=== PATIENT | male | born 1945 | race Caucasian/White ===

== ENCOUNTER 2019-01-12 05:57 | Day surgery (SDC) | payer BC ==
[2019-01-12] MEDS ORDERED: PROPOFOL 20 ML (07:35)
== END 2019-01-12 10:00 | disposition short-term general hospital (02) ==
LOC: GIL 05:57
DX: R10.13 Epigastric pain (principal); Z53.09 Procedure and treatment not carried out because of other contraindication; R00.1 Bradycardia, unspecified
CPT/HCPCS: 82962; 93005

== ENCOUNTER 2019-01-12 08:45 | Inpatient (IN) | payer BC ==
[2019-01-12 09:14] LABS: ADD MAN DIFF? NO
[2019-01-12 09:19] LABS: WHITE BLOOD COUNT 6.2 10^3/ul (4.8-10.8)
[2019-01-12 09:19] LABS: BASOPHILS % 0.3 % (0.0-2.0); EOSINOPHILS # 0.1 10^3/ul (0.0-0.5); EOSINOPHILS % 2.3 % (0.0-7.0); HEMATOCRIT 37.3 % (42.0-52.0); HEMOGLOBIN 12.4 g/dl (14.0-18.0); LYMPHOCYTES # 1.9 10^3/ul (0.8-2.9); LYMPHOCYTES % 30.5 % (15.0-51.0); MEAN CORPUSCULAR HEMOGLOBIN 30.3 pg (29.0-33.0); MEAN CORPUSCULAR HGB CONC 33.2 g/dl (32.0-37.0); MEAN CORPUSCULAR VOLUME 91.2 fl (82.0-101.0); MEAN PLATELET VOLUME 10.2 fl (7.4-10.4); MONOCYTE # 0.5 10^3/ul (0.3-0.9); MONOCYTES % 8.4 % (0.0-11.0); NEUTROPHIL # 3.6 10^3/ul (1.6-7.5); NEUTROPHILS % 58.2 % (39.0-77.0); PLATELET COUNT 148 10^3/UL (140-415); RED BLOOD COUNT 4.09 10^6/ul (4.70-6.10); RED CELL DISTRIBUTION WIDTH 12.8 % (11.5-14.5)
[2019-01-12] MEDS: ASPIRIN 81 MG TAB PO (09:23)
[2019-01-12] MEDS: NITROGLYCERIN 2% 1 GM OINT PKT TD (09:23)
[2019-01-12] MEDS ORDERED: ACETAMINOPHEN 325 MG TAB PO (09:30)
[2019-01-12] MEDS ORDERED: ONDANSETRON 4 MG INJ IV (09:30)
[2019-01-12] MEDS ORDERED: NITROGLYCERIN (SL) 0.4 MG TAB SL (09:30)
[2019-01-12 09:40] LABS: ANION GAP 6 (5-13); BLOOD UREA NITROGEN 22 mg/dl (7-20); CALCIUM 8.8 mg/dl (8.4-10.2); CARBON DIOXIDE 28 mmol/L (21-31); CHLORIDE 106 mmol/L (97-110); CREATININE 0.93 mg/dl (0.61-1.24); GLUCOSE 135 mg/dl (70-220); POTASSIUM 4.6 mmol/L (3.5-5.1); SODIUM 140 mmol/L (135-144)
[2019-01-12 09:49] LABS: TROPONIN-I < 0.012 ng/ml (0.000-0.120)
[2019-01-12 15:40] LABS: CREATINE KINASE 68 IU/L (23-200)
[2019-01-12 15:51] LABS: CK INDEX 1.9; CK-MB 1.32 ng/ml (0.0-2.4); TROPONIN-I < 0.012 ng/ml (0.000-0.120)
[2019-01-12] MEDS: TAMSULOSIN (SR) 0.4 MG CAP PO (17:00)
[2019-01-12] MEDS: INSULIN ASPART [NOVOLOG] 3 ML PEN SC ×2 (17:01→21:00)
[2019-01-12] MEDS: metFORMIN 500 MG TAB PO (17:56)
[2019-01-12] MEDS: LATANOPROST 0.005% 2.5 ML OPH BOTH EYES (21:00)
[2019-01-12 21:52] LABS: CREATINE KINASE 68 IU/L (23-200)
[2019-01-12 22:12] LABS: CK INDEX 1.7; CK-MB 1.15 ng/ml (0.0-2.4); TROPONIN-I < 0.012 ng/ml (0.000-0.120)
[2019-01-13 06:35] LABS: CHOLESTEROL 134 mg/dl (100-200)
[2019-01-13 06:35] LABS: CHOL/HDL RATIO 3.1 RATIO; HDL CHOLESTEROL 42 mg/dl (31-75); LDL CHOLESTEROL,CALCULATED 70 mg/dl; TRIGLYCERIDES 112 mg/dl (0-149)
[2019-01-13] MEDS: INSULIN ASPART [NOVOLOG] 3 ML PEN SC ×4 (07:55→21:00)
[2019-01-13] MEDS: ASPIRIN 81 MG TAB PO (08:52)
[2019-01-13] MEDS: LOSARTAN 50 MG TAB PO (08:53)
[2019-01-13] MEDS: LORATADINE 10 MG TAB PO (08:53)
[2019-01-13] MEDS: metFORMIN 500 MG TAB PO ×3 (08:53→17:46)
[2019-01-13] MEDS: HYDROCHLOROTHIAZIDE 25 MG TAB PO (08:53)
[2019-01-13] MEDS: TAMSULOSIN (SR) 0.4 MG CAP PO (08:53)
[2019-01-13] MEDS: LEVOTHYROXINE 100 MCG TAB PO (08:56)
[2019-01-13] MEDS ORDERED: AMLODIPINE 5 MG TAB PO (09:00)
[2019-01-13] MEDS: REGADENOSON 0.4 MG/5 ML SYG (13:25)
[2019-01-13] MEDS: LATANOPROST 0.005% 2.5 ML OPH BOTH EYES (21:00)
[2019-01-14] MEDS: metFORMIN 500 MG TAB PO ×3 (07:53→17:41)
[2019-01-14] MEDS: LEVOTHYROXINE 100 MCG TAB PO (07:53)
[2019-01-14] MEDS: INSULIN ASPART [NOVOLOG] 3 ML PEN SC ×4 (07:54→20:10)
[2019-01-14 08:13] LABS: HEMOGLOBIN A1C 6.6 % (0-5.9)
[2019-01-14 08:32] LABS: ALANINE AMINOTRANSFERASE 32 IU/L (13-69); ALBUMIN 3.6 g/dl (3.3-4.9); ALKALINE PHOSPHATASE 131 IU/L (42-121); ANION GAP 8 (5-13); ASPARTATE AMINO TRANSFERASE 25 IU/L (15-46); BILIRUBIN,INDIRECT 0.7 mg/dl (0-1.1); BILIRUBIN,TOTAL 0.7 mg/dl (0.2-1.3); BLOOD UREA NITROGEN 18 mg/dl (7-20); CARBON DIOXIDE 26 mmol/L (21-31); CHLORIDE 107 mmol/L (97-110); GLUCOSE 141 mg/dl (70-220); POTASSIUM 4.2 mmol/L (3.5-5.1); SODIUM 141 mmol/L (135-144); TOTAL PROTEIN 6.6 g/dl (6.1-8.1)
[2019-01-14] MEDS: TAMSULOSIN (SR) 0.4 MG CAP PO (08:39)
[2019-01-14] MEDS: ASPIRIN 81 MG TAB PO (08:39)
[2019-01-14] MEDS: LORATADINE 10 MG TAB PO (08:40)
[2019-01-14] MEDS: LOSARTAN 50 MG TAB PO (08:40)
[2019-01-14] MEDS: HYDROCHLOROTHIAZIDE 25 MG TAB PO (08:40)
[2019-01-14 11:41] LABS: FREE T4 (FREE THYROXINE) 0.83 ng/dl (0.78-2.44)
[2019-01-14] MEDS ORDERED: GLUCOSE GEL 15 GRAM TUBE PO ×2 (17:00)
[2019-01-14] MEDS ORDERED: GLUCAGON 1 MG INJ IM (17:00)
[2019-01-14] MEDS ORDERED: GLUCOSE GEL 15 GRAM TUBE BUCCAL (17:00)
[2019-01-14] MEDS ORDERED: DEXTROSE 50% 50 ML SYRINGE IV ×2 (17:00)
[2019-01-14] MEDS: MAGNESIUM CITRATE 300 ML BTL PO (18:50)
[2019-01-14] MEDS: LATANOPROST 0.005% 2.5 ML OPH BOTH EYES (20:12)
[2019-01-14] MEDS: LACTULOSE 30ML CUP PO ×2 (20:12→23:41)
[2019-01-15] MEDS: LACTULOSE 30ML CUP PO ×5 (03:50→15:00)
[2019-01-15] MEDS: LEVOTHYROXINE 100 MCG TAB PO (06:33)
[2019-01-15 07:22] LABS: ANION GAP 6 (5-13); BLOOD UREA NITROGEN 20 mg/dl (7-20); CARBON DIOXIDE 26 mmol/L (21-31); CHLORIDE 108 mmol/L (97-110); CREATININE 1.08 mg/dl (0.61-1.24); GLUCOSE 124 mg/dl (70-220); POTASSIUM 4.1 mmol/L (3.5-5.1); SODIUM 140 mmol/L (135-144)
[2019-01-15] MEDS: metFORMIN 500 MG TAB PO ×3 (07:55→18:28)
[2019-01-15] MEDS: LOSARTAN 50 MG TAB PO (08:06)
[2019-01-15] MEDS: ASPIRIN 81 MG TAB PO (08:06)
[2019-01-15] MEDS: LORATADINE 10 MG TAB PO (08:06)
[2019-01-15] MEDS: HYDROCHLOROTHIAZIDE 25 MG TAB PO (08:07)
[2019-01-15] MEDS: TAMSULOSIN (SR) 0.4 MG CAP PO (08:07)
[2019-01-15] MEDS: Insulin NOVOLOG SS MILD Algorithm (NPO/TPN/ENTERAL FEEDS) SC ×2 (08:13→13:00)
[2019-01-15] MEDS ORDERED: INSULIN ASPART [NOVOLOG] 3 ML PEN SC (09:00)
[2019-01-15] MEDS: PROPOFOL 60 ML (15:07)
[2019-01-15] MEDS: INSULIN ASPART [NOVOLOG] 3 ML PEN SC ×2 (17:55→20:22)
[2019-01-15] MEDS: LATANOPROST 0.005% 2.5 ML OPH BOTH EYES (20:22)
[2019-01-16] MEDS: INSULIN ASPART [NOVOLOG] 3 ML PEN SC (07:55)
[2019-01-16] MEDS: metFORMIN 500 MG TAB PO (07:59)
[2019-01-16] MEDS: LEVOTHYROXINE 100 MCG TAB PO (07:59)
[2019-01-16] MEDS: LORATADINE 10 MG TAB PO (08:00)
[2019-01-16] MEDS: ASPIRIN 81 MG TAB PO (08:00)
[2019-01-16] MEDS: HYDROCHLOROTHIAZIDE 25 MG TAB PO (08:00)
[2019-01-16] MEDS: TAMSULOSIN (SR) 0.4 MG CAP PO (08:00)
[2019-01-16] MEDS: LOSARTAN 50 MG TAB PO (08:00)
== END 2019-01-16 13:15 | disposition home or self-care (01) | DRG 316 ==
LOC: E/R 08:45 → TEL 09:07
PROC: 0DD68ZX Extraction of Stomach, Via Natural or Artificial Opening Endoscopic, Diagnostic (ICD-10-PCS; principal; 2019-01-15 15:00)
PROC: 0DBP8ZX Excision of Rectum, Via Natural or Artificial Opening Endoscopic, Diagnostic (ICD-10-PCS; 2019-01-15 15:00)
DX: R94.31 Abnormal electrocardiogram [ECG] [EKG] (principal); K62.1 Rectal polyp; K20.9 Esophagitis, unspecified; E78.5 Hyperlipidemia, unspecified; E11.9 Type 2 diabetes mellitus without complications; E03.9 Hypothyroidism, unspecified; I10 Essential (primary) hypertension; N40.0 Benign prostatic hyperplasia without lower urinary tract symptoms; Z87.891 Personal history of nicotine dependence; R10.13 Epigastric pain; Z86.73 Personal history of transient ischemic attack (TIA), and cerebral infarction without residual deficits; K44.9 Diaphragmatic hernia without obstruction or gangrene; K29.50 Unspecified chronic gastritis without bleeding; K57.90 Diverticulosis of intestine, part unspecified, without perforation or abscess without bleeding; D64.9 Anemia, unspecified; E66.9 Obesity, unspecified; Z68.32 Body mass index [BMI] 32.0-32.9, adult
CPT/HCPCS: 36415; 71045; 78452; 80048; 80053; 80061; 82550; 82553; 82962; 83036; 84439; 84443; 84484; 85025; 88305; 88312; 93005; 93017; 93306; 99285-25; G0378